=== PATIENT | male | born 1960 | race Caucasian/White ===

== ENCOUNTER → 2019-04-15 10:49 | Outpatient (CLI) | payer OTHER, SELFPAY ==
--- NOTE | 2019-04-15 16:22 | NEURO_ITS ---
NCS and/or EMG Patient Report HPI: Patient is a 59-year-old male who presented with complaints of numbness and tingling in left hand, mostly in the fourth and fifth digits for about 6 months. Patient has a history of bone spurs in the neck but denies any neck injury. Patient does not have history of diabetes. 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 Physical Exam: Mild sensory deficits noted in the left hand fingertips especially in the fourth and fifth finger which is improving as per patient. No significant weakness in the thenar and hypothenar muscles noted. No significant tenderness at left wrist noted. Tinel's sign is negative in the left wrist. Findings: 1. There is a slight prolongation of distal latency of left median sensory nerve response. 2. Normal left ulnar sensory and left median and ulnar motor nerve conduction studies. 3. Normal needle examination of the left upper extremity. Impression: 1. Findings are consistent with mild median mononeuropathy at left wrist due to carpal tunnel syndrome. 2. NO electrodiagnostic evidence of left ulnar peripheral neuropathy. Recommendation: 1. Patient recommended to wear left hand and elbow splints as much as possible. 2. Patient also recommended to avoid repetitive left hand movements and lifting heavy weights from left hand as well as sleeping or leaning on left elbow.
== END ==
PROVIDERS: Family Provider Internal Medicine; PCP Internal Medicine; Referring Provider Internal Medicine; Visit Provider Internal Medicine
DX: M25.532 Pain in left wrist (principal)
CPT/HCPCS: 95886; 95909

== ENCOUNTER → 2025-01-05 | Outpatient (CLI) | payer OTHER, SELFPAY ==
--- NOTE | 2025-01-05 13:00 | FLU_PTH ---
PATIENT: LEONARDO CAMPOS LOC: [facility] U#:[id number] AGE/SX: 64/M ROOM: RE01/05/[address]: Dr. Chandan Florian MD : 1960 BED: DIS: 01/05/2025 SPEC #: [id number] RECD: 01/05/25 15:43 STATUS: ELIZABETH SARA #: [id number] LEONARDO: 01/05/25 13:[address]: Chandan Florian DEPT: CYTOLOGY RECD BY: Main Elizalde ENTERED: 01/06/25 09:48 SP TYPE: Fluid OTHR DR: CECILIO Lucas Tissues: A - Thyroid gland, NOS B - Thyroid gland, NOS Procedures: Pap Stain (control) Special Stain Group II Diff Quik Stain (control) Cytospin Fluid Cytology Other HEADER OPERATION: Fine needle aspiration of right and left thyroid nodules PRE-OP DIAGNOSIS: Right and left thyroid nodules TISSUE SUBMITTED: A- Right thyroid nodule, B- Left thyroid nodule DIAGNOSIS CYTOLOGY A. Right thyroid, nodule, FNA (cytospin, smear x4): - Atypical cells of undetermined significance (TBS III). B. Left thyroid, nodule, FNA (cytospin, smear x4): - Atypical cells of undetermined significance (TBS III). Note: US gel artifact present. COMMENT A, B) Afirma testing submitted. CYTOLOGY STUDY Slides are reviewed. CYTOLOGY GROSS A. Received is 30 ml of cytolyt with particles and 4 slides labeled with the patient's name and and designated per the requisition as Right thyroid nodule. Submitted for cytology and cytospin. B. Received is 30 ml of cytolyt with particles and 4 slides labeled with the patient's name and and designated per the requisition as Left thyroid nodule. Submitted for cytology and cytospin. 01/06/2025 CPT: 47551a2 ADDENDUM ADDENDUM ADDENDUM ADDENDUM ADDENDUM ADDENDUM ADDENDUM ADDENDUM ADDENDUM ADDENDUM ADDENDUM ADDENDUM ADDENDUM ADDENDUM ADDENDUM ADDENDUM ADDENDUM ADDENDUM ADDENDUM 01/24/2025 10:41 ADDENDUM 01/24/2025 10:41 ADDENDUM 01/24/2025 10:41 ADDENDUM 01/24/2025 10:41 ADDENDUM 01/24/2025 10:41 AFIRMA RESULTS REPORT - Specimen A RESULTS INTERPRETATION: The result of this 0.9 cm [place] III nodule A is Afirma GSC benign, which suggests a low risk of cancer of approximately 4%. Treatment like a cytologically benign nodule may be appropriate, including clinical correlation. Afirma XA is not performed on GSC Benign nodules. TERT promoter region analysis is not performed on GSC Benign nodules. AFIRMA RESULTS REPORT - Specimen B RESULTS INTERPRETATION: The result of this 2.3 cm [place] III nodule B is Afirma GSC benign, which suggests a low risk of cancer of approximately 4%. Treatment like a cytologically benign nodule may be appropriate, including clinical correlation. Afirma XA is not performed on GSC Benign nodules. TERT promoter region analysis is not performed on GSC Benign nodules. Please see complete report in e-chart or EMR
== END | disposition home or self-care (01) ==
LOC: LABSPEC 15:47
PROVIDERS: PCP Nurse Practitioner Acute Care; Referring Provider Surgery; Visit Provider Surgery
DX: E04.1 Nontoxic single thyroid nodule (principal)
CPT/HCPCS: 88108; 88161; 88305; 88313